=== PATIENT | male | born 1960 | race Asian ===

== ENCOUNTER 2022-04-12 18:35 | Inpatient (IN) | payer MEDICAID ==
[~2022-04-12] VITALS: Ht 188 cm; Wt 128.0 kg
[2022-04-12 20:48] LABS: Basophils # (auto) 0.1 10 ^3/uL (0-0.2); Basophils % (auto) 0.7 % (0.0-2.0); Eosinophils # (auto) 0.3 10 ^3/uL (0-0.8); Eosinophils % (auto) 3.4 % (0.0-7.0); Hematocrit 51.3 % (41.0-53.0); Hemoglobin 15.8 g/dL (13.5-17.5); Lymphocytes # (auto) 1.6 10 ^3/uL (0.4-5.4); Lymphocytes % (auto) 15.3 % (10.0-50.0); Mean Corpuscular Hemoglobin 18.8 pg (28.0-32.0); Mean Corpuscular Hgb Conc. 30.7 g/dL (32.0-36.0); Mean Corpuscular Volume 61.2 fL (80.0-100.0); Monocytes # (auto) 0.9 10 ^3/uL (0-1.3); Monocytes % (auto) 9.1 % (0.0-12.0); Neutrophils # (auto) 7.4 10 ^3/uL (1.6-8.6); Neutrophils % (auto) 71.5 % (37.0-80.0); Nucleated Red Blood Cells % 0.3 %; Red Blood Cells 8.38 10^6/uL (4.5-5.90); Red Cell Distribution Width 16.9 % (11.8-14.3); White Blood Cell 10.3 10^3/uL (4.4-10.8)
[2022-04-12] MEDS ORDERED: LABETALOL HCL 5 MG/ML 4ML SYRINGE IV ONE (21:00)
[2022-04-12] MEDS ORDERED: FUROSEMIDE 100 MG/10ML VIAL IV ONE (21:00)
[2022-04-12 21:07] LABS: Albumin 3.4 g/dL (3.4-5.0); BUN/Creatinine Ratio 17.6; Calcium 9.2 mg/dL (8.5-10.1); Magnesium 2.3 mg/dL (1.6-2.6); Potassium 4.1 mmol/L (3.5-5.1)
[2022-04-12 21:10] LABS: Bilirubin, Total 1.1 mg/dL (0.2-1.0); Total Protein 7.4 g/dL (6.4-8.2)
[2022-04-12] MEDS ORDERED: hydrALAZINE HCL 20 MG/ML VL IV ONE (21:15)
[2022-04-12 21:54] LABS: Urine Bacteria NONE SEEN /hpf (None Seen); Urine Blood TRACE /uL (Negative); Urine Specific Gravity 1.011 (1.001-1.035); Urine WBC <1 /hpf (0 - 3)
[2022-04-12] MEDS ORDERED: DOCUSATE SOD 100 MG CAP PO PRN (22:30)
[2022-04-12] MEDS ORDERED: ACETAMINOPHEN 325 MG TAB PO PRN (22:30)
[2022-04-12] MEDS ORDERED: hydrALAZINE HCL 20 MG/ML VL IV PRN (22:30)
[2022-04-12] MEDS ORDERED: ONDANSETRON HCL 4 MG/2 ML VIAL IV PRN (22:30)
[2022-04-12] MEDS ORDERED: HEPARIN SODIUM (PORCINE) 5000 UNITS/ML 1ML VIAL IV ONE (22:30)
[2022-04-12] MEDS ORDERED: amLODIPine BESYLATE 5 MG TAB PO ONE (22:30)
[2022-04-12] MEDS ORDERED: HYDROcodone-ACET 5/325MG TAB PO PRN (22:30)
[2022-04-12] MEDS ORDERED: MORPHINE SULFATE INJ 2 MG/ml SYRG IV PRN (23:45)
[2022-04-12] MEDS ORDERED: NITROGLYCERIN 0.4 MG SL TAB SL PRN (23:45)
[2022-04-13] MEDS ORDERED: HEPARIN SODIUM (PORCINE) 5000 UNITS/ML 1ML VIAL SC ONE (01:00)
[2022-04-13 05:10] LABS: Albumin 3.5 g/dL (3.4-5.0); BUN/Creatinine Ratio 17.3; Calcium 9.3 mg/dL (8.5-10.1); Potassium 4.2 mmol/L (3.5-5.1)
[2022-04-13 05:13] LABS: Bilirubin, Total 1.2 mg/dL (0.2-1.0); Total Protein 7.7 g/dL (6.4-8.2)
[2022-04-13] MEDS: SODIUM CHLOR 0.9% PF (SALINE LOCK) 10ML VIAL/SYR IV SCH ×3 (06:02→22:53)
[2022-04-13 08:38] LABS: Basophils # (auto) 0.1 10 ^3/uL (0-0.2); Basophils % (auto) 0.9 % (0.0-2.0); Eosinophils # (auto) 0.3 10 ^3/uL (0-0.8); Hematocrit 53.4 % (41.0-53.0); Hemoglobin 16.3 g/dL (13.5-17.5); Lymphocytes # (auto) 1.5 10 ^3/uL (0.4-5.4); Lymphocytes % (auto) 13.2 % (10.0-50.0); Mean Corpuscular Hemoglobin 18.7 pg (28.0-32.0); Mean Corpuscular Hgb Conc. 30.6 g/dL (32.0-36.0); Mean Corpuscular Volume 61.1 fL (80.0-100.0); Monocytes # (auto) 1.1 10 ^3/uL (0-1.3); Monocytes % (auto) 9.6 % (0.0-12.0); Neutrophils # (auto) 8.5 10 ^3/uL (1.6-8.6); Neutrophils % (auto) 73.3 % (37.0-80.0); Nucleated Red Blood Cells % 0.5 %; Red Blood Cells 8.73 10^6/uL (4.5-5.90); Red Cell Distribution Width 16.6 % (11.8-14.3); White Blood Cell 11.6 10^3/uL (4.4-10.8)
[2022-04-13] MEDS: ASPirin 81 mg TAB PO SCH (10:00)
[2022-04-13] MEDS ORDERED: HEPARIN SODIUM (PORCINE) 5000 UNITS/ML 1ML VIAL SC SCH (10:00)
[2022-04-13] MEDS: FAMOTIDINE (10MG/ML) 2ML VL IV SCH ×2 (10:00→22:53)
[2022-04-13] MEDS: CARVEDILOL 12.5 MG TAB PO SCH ×2 (10:01→22:54)
[2022-04-13] MEDS: AZITHROMYCIN 500MG/ 250ML 250 ML IV SCH (10:01)
[2022-04-13] MEDS: amLODIPine BESYLATE 5 MG TAB PO SCH (10:02)
[2022-04-13] MEDS ORDERED: AMLO-489 PO (12:29)
[2022-04-13] MEDS ORDERED: CARV3.1240 PO (12:29)
[2022-04-13] MEDS ORDERED: ASPI81CH49 PO (12:29)
[2022-04-13] MEDS ORDERED: SIMV-13 PO (12:29)
[2022-04-13] MEDS ORDERED: hydrALAZINE HCL 20 MG/ML VL IV PRN (12:45)
[2022-04-13 12:47] LABS: Cholesterol 166 mg/dL (< 200)
[2022-04-13 12:50] LABS: HDL Cholesterol 63 mg/dL (40-59); LDL Cholesterol 94 mg/dL (< 100); Triglycerides 112 mg/dL (< 150)
[2022-04-13] MEDS ORDERED: cefTRIAXone 1GM/50ML D5W 50 ML IV ONE (14:30)
[2022-04-13 15:02] VITALS: BP 143/99
[2022-04-13 15:36] LABS: INR 1.08 (0.9-1.15); Partial Thromboplastin Time 29.6 sec (24.6-33.4)
[2022-04-13] MEDS ORDERED: LISI2.5T47 PO (16:22)
[2022-04-13] MEDS ORDERED: ALLO100T PO (16:22)
[2022-04-13 17:00] VITALS: BP 143/106
[2022-04-13] MEDS ORDERED: ALBUTEROL MEDNEB 2.5 mg/3ml NEB ONE ×2 (17:59→21:35)
[2022-04-13] MEDS: IPRATROPIUM BROM 0.5 MG/2.5ML INH SOL NEB SCH ×2 (18:46→22:20)
[2022-04-13] MEDS: ALBUTEROL SULF 2.5 MG/0.5ML(0.5%) NEB SOLN NEB SCH ×2 (18:46→22:20)
[2022-04-13 22:00] VITALS: BP 118/77
[2022-04-13 22:44] VITALS: BP 143/106
[2022-04-13] MEDS: ENOXAPARIN SOD 150 MG/1 ML SYRINGE SC SCH (22:54)
[2022-04-13] MEDS: methylPREDNISolone SOD SUCC 40 MG/ML VL IV SCH (22:56)
[2022-04-14] MEDS ORDERED: ALBUTEROL MEDNEB 2.5 mg/3ml NEB ONE ×6 (01:56→21:21)
[2022-04-14] MEDS: IPRATROPIUM BROM 0.5 MG/2.5ML INH SOL NEB SCH ×6 (02:38→22:01)
[2022-04-14] MEDS: ALBUTEROL SULF 2.5 MG/0.5ML(0.5%) NEB SOLN NEB SCH ×6 (02:38→22:00)
[2022-04-14 05:00] VITALS: BP 142/100
[2022-04-14] MEDS: SODIUM CHLOR 0.9% PF (SALINE LOCK) 10ML VIAL/SYR IV SCH ×3 (05:11→22:31)
[2022-04-14] MEDS: methylPREDNISolone SOD SUCC 40 MG/ML VL IV SCH ×3 (05:11→22:32)
[2022-04-14 09:00] VITALS: BP 157/110
[2022-04-14 09:01] VITALS: BP 165/123
[2022-04-14] MEDS: cefTRIAXone 1GM/50ML D5W 50 ML IV SCH (09:42)
[2022-04-14] MEDS: FAMOTIDINE (10MG/ML) 2ML VL IV SCH ×2 (09:42→22:31)
[2022-04-14] MEDS: amLODIPine BESYLATE 5 MG TAB PO SCH (09:46)
[2022-04-14] MEDS: ASPirin 81 mg TAB PO SCH (09:47)
[2022-04-14] MEDS: ENOXAPARIN SOD 150 MG/1 ML SYRINGE SC SCH (09:47)
[2022-04-14] MEDS: AZITHROMYCIN 500MG/ 250ML 250 ML IV SCH (10:26)
[2022-04-14] MEDS: CARVEDILOL 12.5 MG TAB PO SCH ×2 (12:34→22:32)
[2022-04-14 13:00] VITALS: BP 143/99
[2022-04-14] MEDS ORDERED: BUMETANIDE 2.5mg/10ml (0.25 mg/ml) INJ IV ONE (13:15)
[2022-04-14 17:00] VITALS: BP 133/88
[2022-04-14 17:31] LABS: Alcohol, Urine < 3.0 mg/dL (0-10); Amphetamine Screen, Urine POSITIVE (NEGATIVE); Barbiturate Scree,Urine NEGATIVE (NEGATIVE); Benzodiazephine Screen, Urine NEGATIVE (NEGATIVE); Cannabinoid Screen, Urine NEGATIVE (NEGATIVE); Cocaine Screen, Urine NEGATIVE (NEGATIVE); Phencyclidine Screen, Urine NEGATIVE (NEGATIVE)
[2022-04-14 17:39] LABS: Opiate Scree,Urine NEGATIVE (NEGATIVE)
[2022-04-14 22:00] VITALS: BP 124/89
[2022-04-15] VITALS (10 sets, daily range): BP systolic 109–152; BP diastolic 69–101
[2022-04-15] MEDS ORDERED: ALBUTEROL MEDNEB 2.5 mg/3ml NEB ONE ×5 (01:49→21:58)
[2022-04-15] MEDS: IPRATROPIUM BROM 0.5 MG/2.5ML INH SOL NEB SCH ×7 (01:52→22:25)
[2022-04-15] MEDS: ALBUTEROL SULF 2.5 MG/0.5ML(0.5%) NEB SOLN NEB SCH ×7 (01:52→22:25)
[2022-04-15] MEDS: methylPREDNISolone SOD SUCC 40 MG/ML VL IV SCH ×3 (05:43→22:12)
[2022-04-15] MEDS: SODIUM CHLOR 0.9% PF (SALINE LOCK) 10ML VIAL/SYR IV SCH ×3 (05:43→22:12)
[2022-04-15] MEDS ORDERED: fentaNYL CITRATE 100 MCG/2 ML VL ONE (08:20)
[2022-04-15] MEDS ORDERED: HEPARIN SODIUM (PORCINE) 5000 UNITS/ML 1ML VIAL ONE (08:20)
[2022-04-15] MEDS ORDERED: ANGIOMAX 250 MG VIAL IV ONE (08:20)
[2022-04-15] MEDS ORDERED: VERAPAMIL 2.5MG/ML INJ 2ML VIAL IV ONE (08:20)
[2022-04-15] MEDS ORDERED: SODIUM CHL 0.9% 0 ML ONE (08:21)
[2022-04-15] MEDS ORDERED: MIDAZOLAM HCL 2MG/2ML 2ml VIAL (1mg/ml) ONE (08:21)
[2022-04-15] MEDS ORDERED: LIDOCAINE 2%HCL (LOCAL ANESTH.) INJ 10ml MDV ONE (08:21)
[2022-04-15] MEDS ORDERED: IODIXANOL 320MG/ML 100ML BTL IV ONE (08:44)
[2022-04-15] MEDS: ASPirin 81 mg TAB PO SCH (10:39)
[2022-04-15] MEDS: cefTRIAXone 1GM/50ML D5W 50 ML IV SCH (10:39)
[2022-04-15] MEDS: FAMOTIDINE (10MG/ML) 2ML VL IV SCH ×2 (10:39→22:12)
[2022-04-15] MEDS: CARVEDILOL 12.5 MG TAB PO SCH ×2 (10:40→22:13)
[2022-04-15] MEDS: amLODIPine BESYLATE 5 MG TAB PO SCH (10:40)
[2022-04-15] MEDS: AZITHROMYCIN 500MG/ 250ML 250 ML IV SCH (11:27)
[2022-04-15] MEDS: DOXYCYCLINE 100 MG TAB/CAP PO SCH (22:13)
[2022-04-16] MEDS: ALBUTEROL SULF 2.5 MG/0.5ML(0.5%) NEB SOLN NEB SCH ×4 (02:00→14:00)
[2022-04-16] MEDS: IPRATROPIUM BROM 0.5 MG/2.5ML INH SOL NEB SCH ×5 (02:00→14:00)
[2022-04-16] MEDS ORDERED: ALBUTEROL MEDNEB 2.5 mg/3ml NEB ONE ×4 (02:25→13:33)
[2022-04-16 05:13] VITALS: BP 125/96
[2022-04-16] MEDS: SODIUM CHLOR 0.9% PF (SALINE LOCK) 10ML VIAL/SYR IV SCH ×2 (05:35→13:41)
[2022-04-16] MEDS: methylPREDNISolone SOD SUCC 40 MG/ML VL IV SCH ×2 (05:36→13:41)
[2022-04-16 09:00] VITALS: BP 134/98
[2022-04-16] MEDS: cefTRIAXone 1GM/50ML D5W 50 ML IV SCH (10:01)
[2022-04-16] MEDS: CARVEDILOL 12.5 MG TAB PO SCH (10:01)
[2022-04-16] MEDS: ASPirin 81 mg TAB PO SCH (10:01)
[2022-04-16] MEDS: FAMOTIDINE (10MG/ML) 2ML VL IV SCH (10:01)
[2022-04-16] MEDS: DOXYCYCLINE 100 MG TAB/CAP PO SCH (10:01)
[2022-04-16] MEDS: amLODIPine BESYLATE 5 MG TAB PO SCH (10:02)
[2022-04-16] MEDS ORDERED: PRED20TA2 PO (12:33)
[2022-04-16] MEDS ORDERED: ATO40T PO (12:33)
[2022-04-16] MEDS ORDERED: AMLO-496 PO (12:33)
[2022-04-16] MEDS ORDERED: POTA10TA51 PO (12:33)
[2022-04-16] MEDS ORDERED: ALBUAER3 IN (12:33)
[2022-04-16] MEDS ORDERED: CAR125T PO (12:33)
[2022-04-16] MEDS ORDERED: ASPI-498 PO (12:33)
[2022-04-16] MEDS ORDERED: FURO1TAB31 PO (12:33)
[2022-04-16] MEDS ORDERED: DOXY-340 PO (12:33)
[2022-04-16 13:00] VITALS: BP 133/94
== END 2022-04-16 16:35 | disposition home or self-care (01) | DRG 190 ==
LOC: ER 18:35 → TELE 23:37 → TELE-E-ADS 04-13 15:13 → TELE-WESTW 04-13 16:28
PROVIDERS: ADMIT Nurse Practitioner Family; ATTEND Family Medicine
PROC: 4A023N7 Measurement of Cardiac Sampling and Pressure, Left Heart, Percutaneous Approach (ICD-10-PCS; principal; 2022-04-15)
PROC: B211YZZ Fluoroscopy of Multiple Coronary Arteries using Other Contrast (ICD-10-PCS; 2022-04-15)
PROC: B215YZZ Fluoroscopy of Left Heart using Other Contrast (ICD-10-PCS; 2022-04-15)
DX: I21.4 Non-ST elevation (NSTEMI) myocardial infarction (principal); J96.01 Acute respiratory failure with hypoxia; I50.43 Acute on chronic combined systolic (congestive) and diastolic (congestive) heart failure; N17.9 Acute kidney failure, unspecified; J18.9 Pneumonia, unspecified organism; I42.8 Other cardiomyopathies; I13.0 Hypertensive heart and chronic kidney disease with heart failure and stage 1 through stage 4 chronic kidney disease, or unspecified chronic kidney disease; E66.01 Morbid (severe) obesity due to excess calories; N18.32 Chronic kidney disease, stage 3b; E78.5 Hyperlipidemia, unspecified; M10.9 Gout, unspecified; F15.90 Other stimulant use, unspecified, uncomplicated; I25.10 Atherosclerotic heart disease of native coronary artery without angina pectoris; Z20.822 Contact with and (suspected) exposure to COVID-19; Z86.73 Personal history of transient ischemic attack (TIA), and cerebral infarction without residual deficits; Z91.199 Patient's noncompliance with other medical treatment and regimen due to unspecified reason; Z68.36 Body mass index [BMI] 36.0-36.9, adult
CPT/HCPCS: 36415; 71046; 80053; 80061; 80307; 81001; 83036; 83735; 83880; 84443; 84484; 85025; 85379; 85610; 85730; 86850; 86900; 86901; 87426; 87804; 93005; 93306; 93458; 93970; 94640; 96365; 96374; 99152; 99291; G0378; J0696; J2001; J2250; J3490; Q9967

== ENCOUNTER 2022-10-29 17:11 | Inpatient (IN) | payer MEDICAID ==
[~2022-10-29] VITALS: Ht 185.4 cm; Wt 128.8 kg
[~2022-10-29 17:11] MED LIST: ALBUAER3 IN; ALLO100T PO; AMLO1TAB22 PO; AMLO1TAB23 PO; ASPI-498 PO; ASPI81CH49 PO; ATO40T PO; CAR125T PO; CARV3.1240 PO; DOXY1CAP57 PO; FURO1TAB31 PO; LISI2.5T47 PO; POTA10TA51 PO; PRED20TA2 PO; SIMV40TA18 PO
[2022-10-29 19:19] LABS: Alanine Aminotransferase 63 U/L (7-40); Albumin 4.3 g/dL (3.2-4.8); Alkaline Phosphatase 126 U/L (46-116); Anion Gap 7.5 (5-15); Aspartate Aminotransferase 41 U/L (13-40); BUN/Creatinine Ratio 19.5 (10.0-20.0); Bilirubin, Total 0.9 mg/dL (0.2-1.0); Blood Urea Nitrogen 29 mg/dL (9-23); Calcium 9.6 mg/dL (8.5-10.1); Carbon Dioxide 25.5 mmol/L (20-30); Chloride 107 mmol/L (98-107); Glucose 162 mg/dL (74-106); Potassium 4.2 mmol/L (3.5-5.1); Sodium 140 mmol/L (136-145)
[2022-10-29 19:20] LABS: Total Protein 7.2 g/dL (5.7-8.2)
[2022-10-29 19:33] LABS: Basophils # (auto) 0.1 10 ^3/uL (0-0.2); Eosinophils # (auto) 0.7 10 ^3/uL (0-0.8); Mean Corpuscular Hemoglobin 18.9 pg (28.0-32.0)
[2022-10-29 19:36] LABS: Basophils % (auto) 0.6 % (0.0-2.0); Eosinophils % (auto) 8.6 % (0.0-7.0); Hematocrit 49.5 % (41.0-53.0); Hemoglobin 15.4 g/dL (13.5-17.5); Lymphocytes # (auto) 1.1 10 ^3/uL (0.4-5.4); Lymphocytes % (auto) 12.6 % (10.0-50.0); Mean Corpuscular Volume 60.9 fL (80.0-100.0); Monocytes # (auto) 0.6 10 ^3/uL (0-1.3); Monocytes % (auto) 7.3 % (0.0-12.0); Neutrophils % (auto) 70.9 % (37.0-80.0); Nucleated Red Blood Cells % 0.9 %; Red Blood Cells 8.12 10^6/uL (4.5-5.90); Red Cell Distribution Width 16.9 % (11.8-14.3); White Blood Cell 8.5 10^3/uL (4.4-10.8)
[2022-10-29 19:48] LABS: Urine Bacteria NONE SEEN /hpf (None Seen); Urine Blood TRACE /uL (Negative); Urine Clarity Clear (Clear); Urine Color Yellow (Yellow); Urine Hyaline Cast FEW /lpf (0 - 2); Urine Protein, UAD 2+ (Negative); Urine Specific Gravity 1.017 (1.001-1.035); Urine Urobilinogen Normal (Negative); Urine WBC 1 /hpf (0 - 3); Urine pH 5.5 (5.0-8.0)
[2022-10-29] MEDS ORDERED: LACTATED RINGER'S 1,000 ML IV ONE (21:00)
[2022-10-29] MEDS ORDERED: ASPirin 325 MG TAB PO ONE (21:00)
[2022-10-29] MEDS ORDERED: cloNIDine HCL 0.1 MG TAB PO ONE (22:30)
[2022-10-29 22:32] LABS: Lipase 84 U/L (12-53)
[2022-10-29 22:33] LABS: Blood Alcohol < 3.0 mg/dL (<10); Magnesium 2.2 mg/dL (1.6-2.6)
[2022-10-30] MEDS ORDERED: hydrALAZINE HCL 20 MG/ML VL IV ONE
[2022-10-30] MEDS ORDERED: ENOXAPARIN SOD 100 MG/1 ML SYRINGE SC ONE (00:30)
[2022-10-30] MEDS ORDERED: FUROSEMIDE 20 MG/2 ML VIAL IV ONE (00:30)
[2022-10-30] MEDS ORDERED: ONDANSETRON HCL 4 MG/2 ML VIAL IV PRN (00:45)
[2022-10-30] MEDS ORDERED: NITROGLYCERIN 0.4 MG SL TAB SL PRN (00:45)
[2022-10-30] MEDS ORDERED: ACETAMINOPHEN 325 MG TAB PO PRN (00:45)
[2022-10-30] MEDS ORDERED: MORPHINE SULFATE INJ 2 MG/ml SYRG IV PRN (00:45)
[2022-10-30] MEDS: hydrALAZINE HCL 20 MG/ML VL IV PRN ×2 (03:55→13:08)
[2022-10-30 07:30] VITALS: PULSE 98; RESP 28; O2SAT 96
[2022-10-30 09:04] LABS: COVID19 ANTIGEN SOFIA FIA NEGATIVE (NEGATIVE); Rapid Influenza A Negative (Negative); Rapid Influenza B Negative (Negative)
[2022-10-30] MEDS ORDERED: FUROSEMIDE 40 MG TAB PO SCH (10:00)
[2022-10-30] MEDS: ALLOPURINOL 100 MG TAB PO SCH (10:21)
[2022-10-30] MEDS: CARVEDILOL 3.125 MG TAB PO SCH ×2 (10:21→21:47)
[2022-10-30] MEDS: ASPirin 81 mg TAB PO SCH (10:23)
[2022-10-30] MEDS: PANTOPRAZOLE 40 MG TAB PO SCH (10:23)
[2022-10-30] MEDS: LISINOPRIL 5 MG TAB PO SCH (10:23)
[2022-10-30] MEDS: amLODIPine BESYLATE 5 MG TAB PO SCH (10:23)
[2022-10-30] MEDS: ENOXAPARIN SOD 30 MG/0.3 ML SYRINGE SC SCH (10:24)
[2022-10-30 18:00] VITALS: BP 134/89; PULSE 88; RESP 18; TEMP 97.9; O2SAT 97
[2022-10-30] MEDS: FUROSEMIDE 20 MG/2 ML VIAL IV SCH (18:16)
[2022-10-30 20:00] VITALS: PULSE 100; PULSE 88; RESP 20; O2SAT 97
[2022-10-30] MEDS: ATORVASTATIN 20 MG TAB PO SCH (21:47)
[2022-10-30 22:00] VITALS: BP 149/94; PULSE 94; RESP 20; TEMP 98.5; O2SAT 98
[2022-10-31 05:00] VITALS: BP 138/92; PULSE 86; RESP 22; TEMP 98.4; O2SAT 98
[2022-10-31 06:00] LABS: Alanine Aminotransferase 48 U/L (7-40); Albumin 3.8 g/dL (3.2-4.8); Alkaline Phosphatase 83 U/L (46-116); Anion Gap 5.8 (5-15); Aspartate Aminotransferase 34 U/L (13-40); BUN/Creatinine Ratio 12.8 (10.0-20.0); Blood Urea Nitrogen 23 mg/dL (9-23); Calcium 9.1 mg/dL (8.7-10.4); Carbon Dioxide 28.2 mmol/L (20-30); Chloride 103 mmol/L (98-107); Eosinophils # (auto) 0.7 10 ^3/uL (0-0.8); Glucose 117 mg/dL (74-106); Lymphocytes # (auto) 1.1 10 ^3/uL (0.4-5.4); Mean Corpuscular Volume 61.7 fL (80.0-100.0); Potassium 4.4 mmol/L (3.5-5.1); Sodium 137 mmol/L (136-145); White Blood Cell 10.3 10^3/uL (4.4-10.8)
[2022-10-31 06:01] LABS: Bilirubin, Total 1.3 mg/dL (0.2-1.0); Total Protein 6.7 g/dL (5.7-8.2)
[2022-10-31 06:03] LABS: Basophils # (auto) 0.1 10 ^3/uL (0-0.2); Basophils % (auto) 0.7 % (0.0-2.0); Eosinophils % (auto) 6.7 % (0.0-7.0); Mean Corpuscular Hemoglobin 19.3 pg (28.0-32.0); Mean Corpuscular Hgb Conc. 31.2 g/dL (32.0-36.0); Monocytes # (auto) 1.1 10 ^3/uL (0-1.3); Monocytes % (auto) 10.5 % (0.0-12.0); Neutrophils # (auto) 7.3 10 ^3/uL (1.6-8.6); Neutrophils % (auto) 71.1 % (37.0-80.0); Nucleated Red Blood Cells % 0.2 %; Red Blood Cells 7.78 10^6/uL (4.5-5.90); Red Cell Distribution Width 16.2 % (11.8-14.3)
[2022-10-31] MEDS: FUROSEMIDE 20 MG/2 ML VIAL IV SCH ×2 (06:10→17:35)
[2022-10-31 08:00] VITALS: BP 141/92; PULSE 85; PULSE 91; RESP 20; TEMP 98.1; O2SAT 95
[2022-10-31 09:24] LABS: Anisocytosis Slight; Hypochromia Slight; Platelet Estimate Adequate; Tear Drop Cells FEW
[2022-10-31] MEDS: ALLOPURINOL 100 MG TAB PO SCH (09:55)
[2022-10-31] MEDS: ASPirin 81 mg TAB PO SCH (09:55)
[2022-10-31] MEDS: PANTOPRAZOLE 40 MG TAB PO SCH (09:55)
[2022-10-31] MEDS: amLODIPine BESYLATE 5 MG TAB PO SCH (09:57)
[2022-10-31] MEDS: LISINOPRIL 5 MG TAB PO SCH (09:57)
[2022-10-31] MEDS: CARVEDILOL 3.125 MG TAB PO SCH ×2 (09:58→21:54)
[2022-10-31] MEDS: ENOXAPARIN SOD 30 MG/0.3 ML SYRINGE SC SCH (09:58)
[2022-10-31 10:36] LABS: Hepatitis B Surface Antigen Negative (Negative)
[2022-10-31 10:57] LABS: Hepatitis C Antibody Negative (Negative)
[2022-10-31 12:00] VITALS: BP 149/101; PULSE 89; RESP 21; TEMP 98.2; O2SAT 97
[2022-10-31 16:00] VITALS: BP 158/109; PULSE 81; RESP 18; TEMP 98; O2SAT 96
[2022-10-31] MEDS: hydrALAZINE HCL 20 MG/ML VL IV PRN (17:36)
[2022-10-31 20:00] VITALS: PULSE 90
[2022-10-31] MEDS: ATORVASTATIN 20 MG TAB PO SCH (21:53)
[2022-10-31 22:00] VITALS: BP 154/99; PULSE 90; RESP 20; TEMP 98.6; O2SAT 94
[2022-11-01] VITALS (7 sets, daily range): BP systolic 101–156; BP diastolic 65–117; PULSE 84–93; RESP 19–22; TEMP 97.5–98.4; O2SAT 93–97
[2022-11-01] MEDS: hydrALAZINE HCL 20 MG/ML VL IV PRN (05:28)
[2022-11-01] MEDS: FUROSEMIDE 20 MG/2 ML VIAL IV SCH ×2 (06:09→18:15)
[2022-11-01 07:04] LABS: Anion Gap 6.7 (5-15); Carbon Dioxide 27.3 mmol/L (20-30); Chloride 102 mmol/L (98-107); Potassium 4.5 mmol/L (3.5-5.1); Sodium 136 mmol/L (136-145)
[2022-11-01 07:06] LABS: Calcium 9.4 mg/dL (8.7-10.4)
[2022-11-01 07:10] LABS: BUN/Creatinine Ratio 10.9 (10.0-20.0); Blood Urea Nitrogen 19 mg/dL (9-23); Glucose 108 mg/dL (74-106)
[2022-11-01 07:15] LABS: Basophils # (auto) 0.1 10 ^3/uL (0-0.2); Eosinophils # (auto) 0.7 10 ^3/uL (0-0.8); Hematocrit 51.2 % (41.0-53.0); Mean Corpuscular Hemoglobin 19.1 pg (28.0-32.0); Monocytes # (auto) 1.2 10 ^3/uL (0-1.3); Red Cell Distribution Width 16.4 % (11.8-14.3)
[2022-11-01 07:16] LABS: Basophils % (auto) 0.6 % (0.0-2.0); Eosinophils % (auto) 6.8 % (0.0-7.0); Hemoglobin 15.9 g/dL (13.5-17.5); Lymphocytes # (auto) 1.1 10 ^3/uL (0.4-5.4); Lymphocytes % (auto) 10.3 % (10.0-50.0); Mean Corpuscular Volume 61.7 fL (80.0-100.0); Monocytes % (auto) 11.9 % (0.0-12.0); Neutrophils # (auto) 7.3 10 ^3/uL (1.6-8.6); Neutrophils % (auto) 70.4 % (37.0-80.0); Nucleated Red Blood Cells % 0.5 %; Red Blood Cells 8.29 10^6/uL (4.5-5.90); White Blood Cell 10.4 10^3/uL (4.4-10.8)
[2022-11-01 08:07] LABS: Hepatitis B Surface Antibody Negative (Negative)
[2022-11-01 08:47] LABS: Hepatitis A Total Antibody Negative (Negative)
[2022-11-01] MEDS: ASPirin 81 mg TAB PO SCH ×2 (09:02→10:00)
[2022-11-01] MEDS: ALLOPURINOL 100 MG TAB PO SCH (09:02)
[2022-11-01] MEDS: PANTOPRAZOLE 40 MG TAB PO SCH (09:02)
[2022-11-01] MEDS: LISINOPRIL 5 MG TAB PO SCH (09:03)
[2022-11-01] MEDS: amLODIPine BESYLATE 5 MG TAB PO SCH ×2 (09:03→10:00)
[2022-11-01] MEDS: CARVEDILOL 3.125 MG TAB PO SCH (09:03)
[2022-11-01] MEDS: ENOXAPARIN SOD 30 MG/0.3 ML SYRINGE SC SCH (09:04)
[2022-11-01] MEDS: DOBUTamine 1000MCG/ML 250 ML IV SCH ×2 (11:17→22:30)
[2022-11-01 18:49] LABS: Amphetamine Screen, Urine Pos (NEGATIVE); Barbiturate Scree,Urine Neg (NEGATIVE); Benzodiazephine Screen, Urine Neg (NEGATIVE); Cannabinoid Screen, Urine Neg (NEGATIVE); Cocaine Screen, Urine Neg (NEGATIVE); Opiate Scree,Urine Neg (NEGATIVE); Phencyclidine Screen, Urine Neg (NEGATIVE)
[2022-11-01 22:13] LABS: Hepatitis B Core Total AB Negative (Negative)
[2022-11-01] MEDS: CARVEDILOL 12.5 MG TAB PO SCH (22:27)
[2022-11-01] MEDS: ATORVASTATIN 20 MG TAB PO SCH (22:30)
[2022-11-02] VITALS (9 sets, daily range): BP systolic 110–135; BP diastolic 73–91; PULSE 65–85; RESP 18–20; TEMP 98–98.1; O2SAT 93–99
[2022-11-02] MEDS: FUROSEMIDE 20 MG/2 ML VIAL IV SCH (06:12)
[2022-11-02 06:52] LABS: Basophils # (auto) 0.1 10 ^3/uL (0-0.2); Chloride 101 mmol/L (98-107); Eosinophils # (auto) 0.5 10 ^3/uL (0-0.8); Hemoglobin 14.8 g/dL (13.5-17.5); Mean Corpuscular Volume 61.3 fL (80.0-100.0); Neutrophils # (auto) 7.7 10 ^3/uL (1.6-8.6); Neutrophils % (auto) 74.5 % (37.0-80.0); Potassium 4.4 mmol/L (3.5-5.1); Sodium 136 mmol/L (136-145)
[2022-11-02 06:53] LABS: Calcium 9.1 mg/dL (8.7-10.4)
[2022-11-02 06:54] LABS: Basophils % (auto) 0.5 % (0.0-2.0); Eosinophils % (auto) 4.4 % (0.0-7.0); Hematocrit 47.5 % (41.0-53.0); Lymphocytes # (auto) 1.1 10 ^3/uL (0.4-5.4); Lymphocytes % (auto) 10.2 % (10.0-50.0); Mean Corpuscular Hemoglobin 19.1 pg (28.0-32.0); Mean Corpuscular Hgb Conc. 31.2 g/dL (32.0-36.0); Monocytes # (auto) 1.1 10 ^3/uL (0-1.3); Monocytes % (auto) 10.4 % (0.0-12.0); Nucleated Red Blood Cells % 0.3 %; Red Blood Cells 7.75 10^6/uL (4.5-5.90); Red Cell Distribution Width 16.6 % (11.8-14.3); White Blood Cell 10.4 10^3/uL (4.4-10.8)
[2022-11-02 06:58] LABS: BUN/Creatinine Ratio 16.1 (10.0-20.0); Glucose 124 mg/dL (74-106)
[2022-11-02 08:00] LABS: Blood Urea Nitrogen 29 mg/dL (9-23)
[2022-11-02] MEDS: PANTOPRAZOLE 40 MG TAB PO SCH (09:56)
[2022-11-02] MEDS: ALLOPURINOL 100 MG TAB PO SCH (09:56)
[2022-11-02] MEDS: ASPirin 81 mg TAB PO SCH (09:56)
[2022-11-02] MEDS: amLODIPine BESYLATE 5 MG TAB PO SCH (09:57)
[2022-11-02] MEDS: CARVEDILOL 12.5 MG TAB PO SCH ×3 (09:57→21:50)
[2022-11-02] MEDS: ENOXAPARIN SOD 30 MG/0.3 ML SYRINGE SC SCH (09:58)
[2022-11-02 11:11] LABS: Platelet Estimate Adequate
[2022-11-02 11:12] LABS: Hypochromia Moderate
[2022-11-02] MEDS: DOBUTamine 1000MCG/ML 250 ML IV SCH (12:06)
[2022-11-02 16:44] LABS: Base Excess 3.2 mmol/L (-2.0-2.0)
[2022-11-02] MEDS: ATORVASTATIN 20 MG TAB PO SCH (21:35)
[2022-11-02] MEDS: BUDESONIDE (INHALATION) 0.5 MG/2 ML NEB NEB SCH (22:26)
[2022-11-02] MEDS: IPRATROPIUM BROM 0.5 MG/2.5ML INH SOL NEB SCH (22:26)
[2022-11-03] VITALS (9 sets, daily range): BP systolic 121–140; BP diastolic 78–103; PULSE 66–76; RESP 18–22; TEMP 36.5; O2SAT 93–100
[2022-11-03 06:46] LABS: Hemoglobin 15.2 g/dL (13.5-17.5); Mean Corpuscular Volume 61.4 fL (80.0-100.0); Monocytes # (auto) 1.2 10 ^3/uL (0-1.3); Nucleated Red Blood Cells % 0.4 %
[2022-11-03 06:48] LABS: Basophils # (auto) 0.1 10 ^3/uL (0-0.2); Basophils % (auto) 0.7 % (0.0-2.0); Eosinophils # (auto) 0.5 10 ^3/uL (0-0.8); Eosinophils % (auto) 4.9 % (0.0-7.0); Hematocrit 48.6 % (41.0-53.0); Lymphocytes # (auto) 1.2 10 ^3/uL (0.4-5.4); Lymphocytes % (auto) 12.1 % (10.0-50.0); Mean Corpuscular Hemoglobin 19.2 pg (28.0-32.0); Mean Corpuscular Hgb Conc. 31.4 g/dL (32.0-36.0); Monocytes % (auto) 11.7 % (0.0-12.0); Neutrophils # (auto) 6.9 10 ^3/uL (1.6-8.6); Neutrophils % (auto) 70.6 % (37.0-80.0); Red Blood Cells 7.92 10^6/uL (4.5-5.90); Red Cell Distribution Width 16.2 % (11.8-14.3); White Blood Cell 9.9 10^3/uL (4.4-10.8)
[2022-11-03] MEDS ORDERED: EMPAGLIFLOZIN 10 MG TAB PO SCH (07:00)
[2022-11-03 07:03] LABS: Alanine Aminotransferase 32 U/L (7-40); Alkaline Phosphatase 82 U/L (46-116); Anion Gap 5.5 (5-15); Aspartate Aminotransferase 23 U/L (13-40); BUN/Creatinine Ratio 16.2 (10.0-20.0); Blood Urea Nitrogen 28 mg/dL (9-23); Calcium 9.3 mg/dL (8.7-10.4); Carbon Dioxide 29.5 mmol/L (20-30); Chloride 101 mmol/L (98-107); Glucose 111 mg/dL (74-106); Potassium 4.7 mmol/L (3.5-5.1); Sodium 136 mmol/L (136-145)
[2022-11-03 07:04] LABS: Bilirubin, Total 1.2 mg/dL (0.2-1.0)
[2022-11-03] MEDS: IPRATROPIUM BROM 0.5 MG/2.5ML INH SOL NEB SCH ×2 (07:20→14:58)
[2022-11-03] MEDS: BUDESONIDE (INHALATION) 0.5 MG/2 ML NEB NEB SCH (07:21)
[2022-11-03] MEDS: ENOXAPARIN SOD 30 MG/0.3 ML SYRINGE SC SCH (09:23)
[2022-11-03] MEDS: ALLOPURINOL 100 MG TAB PO SCH (09:24)
[2022-11-03] MEDS: CARVEDILOL 12.5 MG TAB PO SCH (09:24)
[2022-11-03] MEDS: amLODIPine BESYLATE 5 MG TAB PO SCH (09:24)
[2022-11-03] MEDS: ASPirin 81 mg TAB PO SCH (09:24)
[2022-11-03] MEDS: PANTOPRAZOLE 40 MG TAB PO SCH (09:24)
[2022-11-03] MEDS ORDERED: FUROSEMIDE 40 MG TAB PO SCH (10:00)
[2022-11-03] MEDS ORDERED: EMPA1TAB PO (11:07)
== END 2022-11-03 18:30 | disposition home or self-care (01) | DRG 199 ==
LOC: ER 17:11 → TELE 10-30 00:44 → TELE-EAST 10-30 17:27
PROVIDERS: ADMIT Internal Medicine Pulmonary Disease; ATTEND Internal Medicine
DX: I16.0 Hypertensive urgency (principal); J81.0 Acute pulmonary edema; I50.23 Acute on chronic systolic (congestive) heart failure; I21.A1 Myocardial infarction type 2; I13.0 Hypertensive heart and chronic kidney disease with heart failure and stage 1 through stage 4 chronic kidney disease, or unspecified chronic kidney disease; I42.7 Cardiomyopathy due to drug and external agent; E11.22 Type 2 diabetes mellitus with diabetic chronic kidney disease; R31.9 Hematuria, unspecified; E78.5 Hyperlipidemia, unspecified; F15.19 Other stimulant abuse with unspecified stimulant-induced disorder; R77.8 Other specified abnormalities of plasma proteins; N18.9 Chronic kidney disease, unspecified; M10.9 Gout, unspecified; Z20.822 Contact with and (suspected) exposure to COVID-19; E66.9 Obesity, unspecified; F15.10 Other stimulant abuse, uncomplicated; F17.200 Nicotine dependence, unspecified, uncomplicated; Z82.49 Family history of ischemic heart disease and other diseases of the circulatory system; Z86.73 Personal history of transient ischemic attack (TIA), and cerebral infarction without residual deficits; Z68.37 Body mass index [BMI] 37.0-37.9, adult
CPT/HCPCS: 36415; 36600; 71046; 71250; 80048; 80053; 80307; 80320; 81001; 82805; 83690; 83735; 83880; 84484; 85025; 86704; 86706; 86708; 86803; 87340; 87426; 87804; 93005; 93306; 94640; 97110; 97116; 97163; 97530; G0378

== ENCOUNTER 2022-11-08 10:22 | Emergency (ER) | payer MEDICAID ==
[~2022-11-08] VITALS: Ht 185.4 cm; Wt 133.0 kg
[~2022-11-08 10:22] MED LIST changes: +EMPA1TAB PO; -PRED20TA2 PO
[2022-11-08 11:04] VITALS: BP 141/96; PULSE 93; RESP 18; TEMP 98.4; O2SAT 95
== END 2022-11-08 11:07 | disposition home or self-care (01) ==
LOC: ER 10:22
DX: I16.0 Hypertensive urgency (principal); I11.0 Hypertensive heart disease with heart failure; I50.89 Other heart failure; F17.210 Nicotine dependence, cigarettes, uncomplicated; F15.90 Other stimulant use, unspecified, uncomplicated; Z79.899 Other long term (current) drug therapy; Z79.82 Long term (current) use of aspirin; E78.5 Hyperlipidemia, unspecified; Z86.73 Personal history of transient ischemic attack (TIA), and cerebral infarction without residual deficits

== ENCOUNTER 2023-04-30 03:48 | Inpatient (IN) | payer MEDICAID ==
[~2023-04-30] VITALS: Ht 185.4 cm; Wt 128.1 kg
[2023-04-30] MEDS: NITROGLYCERIN 0.4MG/HR TOPICAL PATCH TD ONE (04:30)
[2023-04-30] MEDS: FUROSEMIDE 100 MG/10ML VIAL IV ONE (04:30)
[2023-04-30 04:42] LABS: Basophils # (auto) 0.1 10 ^3/uL (0-0.2); Eosinophils # (auto) 0.5 10 ^3/uL (0-0.8); Hemoglobin 15.5 g/dL (13.5-17.5); Lymphocytes # (auto) 1.6 10 ^3/uL (0.4-5.4); Mean Corpuscular Hemoglobin 18.8 pg (28.0-32.0); Neutrophils # (auto) 5.7 10 ^3/uL (1.6-8.6); Red Cell Distribution Width 16.7 % (11.8-14.3); White Blood Cell 8.9 10^3/uL (4.4-10.8)
[2023-04-30 04:44] LABS: Basophils % (auto) 0.9 % (0.0-2.0); Eosinophils % (auto) 5.7 % (0.0-7.0); Hematocrit 50.5 % (41.0-53.0); Lymphocytes % (auto) 17.8 % (10.0-50.0); Mean Corpuscular Hgb Conc. 30.6 g/dL (32.0-36.0); Mean Corpuscular Volume 61.4 fL (80.0-100.0); Monocytes % (auto) 11.8 % (0.0-12.0); Neutrophils % (auto) 63.8 % (37.0-80.0); Nucleated Red Blood Cells % 0.8 %; Red Blood Cells 8.23 10^6/uL (4.5-5.90)
[2023-04-30 04:54] LABS: Chloride 109 mmol/L (98-107); Potassium 4.5 mmol/L (3.5-5.1); Sodium 141 mmol/L (136-145)
[2023-04-30 04:55] LABS: Anion Gap 6 (5-15); Calcium 9.1 mg/dL (8.7-10.4); Carbon Dioxide 26 mmol/L (20-30)
[2023-04-30 05:00] LABS: BUN/Creatinine Ratio 12.6 (10.0-20.0); Blood Urea Nitrogen 25 mg/dL (9-23); Glucose 126 mg/dL (74-106)
[2023-04-30 05:35] VITALS: PULSE 92; RESP 18; O2SAT 95
[2023-04-30] MEDS: ASPirin 325 MG TAB PO ONE (05:49)
[2023-04-30] MEDS: LABETALOL HCL 5 MG/ML 4ML SYRINGE IV ONE (06:14)
[2023-04-30 06:53] LABS: Anisocytosis Slight; Platelet Estimate Adequate
[2023-04-30 06:54] LABS: Hypochromia Marked
[2023-04-30] MEDS ORDERED: LABETALOL HCL 5 MG/ML 4ML SYRINGE IV PRN (07:00)
[2023-04-30] MEDS ORDERED: ONDANSETRON HCL 4 MG/2 ML VIAL IV PRN (07:00)
[2023-04-30] MEDS ORDERED: MORPHINE SULFATE INJ 2 MG/ml SYRG IV PRN (07:00)
[2023-04-30] MEDS ORDERED: NITROGLYCERIN 0.4 MG SL TAB SL PRN (07:00)
[2023-04-30] MEDS ORDERED: hydrALAZINE HCL 20 MG/ML VL IV PRN (09:30)
[2023-04-30] MEDS ORDERED: CARVEDILOL 3.125 MG TAB PO SCH (10:00)
[2023-04-30] MEDS ORDERED: amLODIPine BESYLATE 5 MG TAB PO SCH (10:00)
[2023-04-30] MEDS: ALLOPURINOL 100 MG TAB PO SCH (10:00)
[2023-04-30] MEDS ORDERED: FUROSEMIDE 40 MG TAB PO SCH (10:00)
[2023-04-30] MEDS ORDERED: ASPirin 81 mg TAB PO SCH (10:00)
[2023-04-30] MEDS ORDERED: LISINOPRIL 5 MG TAB PO SCH (10:00)
[2023-04-30 10:02] LABS: Amphetamine Screen, Urine Pos (NEGATIVE); Barbiturate Scree,Urine Neg (NEGATIVE); Benzodiazephine Screen, Urine Neg (NEGATIVE); Cannabinoid Screen, Urine Neg (NEGATIVE); Cocaine Screen, Urine Neg (NEGATIVE); Opiate Scree,Urine Neg (NEGATIVE); Phencyclidine Screen, Urine Neg (NEGATIVE)
[2023-04-30] MEDS: SODIUM CHLORIDE 0.9% 1,000 ML IV SCH (10:30)
[2023-04-30 10:47] LABS: Urine WBC None Seen /hpf (0 - 3)
[2023-04-30 11:10] LABS: Protein, Urine 31.2 mg/dL (0.0-11.9)
[2023-04-30 11:13] LABS: Creatinine, Urine 41.34 mg/dL (30.0-125.0); Urine Protein/Creatinine Ratio 0.75
[2023-04-30 11:17] LABS: Urine Bacteria NONE SEEN /hpf (None Seen); Urine Blood Negative /uL (Negative); Urine Clarity Clear (Clear); Urine Color Straw (Yellow); Urine Protein, UAD TRACE (Negative); Urine Specific Gravity 1.008 (1.001-1.035); Urine Urobilinogen Normal (Negative); Urine pH 5.5 (5.0-8.0)
[2023-04-30] MEDS: amLODIPine BESYLATE 5 MG TAB PO SCH (11:17)
[2023-04-30] MEDS: EMPAGLIFLOZIN 10 MG TAB PO SCH (11:20)
[2023-04-30] MEDS: LABETALOL HCL 200 MG TAB PO SCH (11:21)
[2023-04-30 13:05] LABS: Magnesium 2.1 mg/dL (1.6-2.6)
[2023-04-30 13:07] LABS: Phosphorus 3.2 mg/dL (2.4-5.1)
[2023-04-30] MEDS: CHOLECALCIFEROL (VITD3) 1,000UNIT=25mCg TAB PO ONE (14:30)
[2023-04-30 15:40] LABS: INR 1.08 (0.9-1.15); Partial Thromboplastin Time 29.3 SEC (24.5-34.5); Prothrombin Time 11.3 sec (9.3-11.8)
[2023-04-30 18:15] VITALS: RESP 18; O2SAT 95
[2023-04-30 20:00] VITALS: PULSE 70; RESP 24; O2SAT 96
[2023-04-30] MEDS: CARBAMIDE PEROXIDE 6.5% OTIC(EAR) SOLN 15ML EACH EAR SCH (22:14)
[2023-04-30] MEDS: ATORVASTATIN 20 MG TAB PO SCH (22:14)
[2023-04-30 22:41] VITALS: PULSE 77
[2023-05-01 05:00] VITALS: BP 116/96; PULSE 80; RESP 20; TEMP 98.1; O2SAT 97
[2023-05-01 06:54] LABS: Basophils # (auto) 0.1 10 ^3/uL (0-0.2); Basophils % (auto) 0.9 % (0.0-2.0); Eosinophils # (auto) 0.5 10 ^3/uL (0-0.8); Hemoglobin 14.7 g/dL (13.5-17.5); Lymphocytes # (auto) 1.6 10 ^3/uL (0.4-5.4); Neutrophils # (auto) 6.4 10 ^3/uL (1.6-8.6); White Blood Cell 9.6 10^3/uL (4.4-10.8)
[2023-05-01 06:56] LABS: Eosinophils % (auto) 5.1 % (0.0-7.0); Hematocrit 47.1 % (41.0-53.0); Lymphocytes % (auto) 17.1 % (10.0-50.0); Mean Corpuscular Hemoglobin 18.8 pg (28.0-32.0); Mean Corpuscular Hgb Conc. 31.1 g/dL (32.0-36.0); Mean Corpuscular Volume 60.5 fL (80.0-100.0); Monocytes # (auto) 0.9 10 ^3/uL (0-1.3); Monocytes % (auto) 9.7 % (0.0-12.0); Neutrophils % (auto) 67.2 % (37.0-80.0); Nucleated Red Blood Cells % 0.4 %; Red Cell Distribution Width 16.5 % (11.8-14.3)
[2023-05-01 08:00] VITALS: PULSE 79; PULSE 80; RESP 20
[2023-05-01 08:11] LABS: Alanine Aminotransferase 37 U/L (7-40); Albumin 3.9 g/dL (3.2-4.8); Alkaline Phosphatase 91 U/L (46-116); Anion Gap 8 (5-15); Aspartate Aminotransferase 25 U/L (13-40); BUN/Creatinine Ratio 8.6 (10.0-20.0); Bilirubin, Total 1.1 mg/dL (0.2-1.0); Blood Urea Nitrogen 17 mg/dL (9-23); Calcium 9.4 mg/dL (8.5-10.1); Carbon Dioxide 25 mmol/L (20-30); Chloride 105 mmol/L (98-107); Cholesterol 136 mg/dL (< 200); Glucose 122 mg/dL (74-106); HDL Cholesterol 41 mg/dL (40-59); LDL Cholesterol 77 mg/dL (< 100); Potassium 4.7 mmol/L (3.5-5.1); Sodium 138 mmol/L (136-145); Total Protein 6.5 g/dL (5.7-8.2); Triglycerides 126 mg/dL (< 150)
[2023-05-01] MEDS: ASPirin 81 mg TAB PO SCH (08:41)
[2023-05-01] MEDS: CHOLECALCIFEROL (VITD3) 1,000UNIT=25mCg TAB PO SCH (08:42)
[2023-05-01 08:51] LABS: Hepatitis B Surface Antigen Negative (Negative)
[2023-05-01 09:00] VITALS: BP 148/96; PULSE 80; RESP 22; TEMP 98.5; O2SAT 97
[2023-05-01 09:12] LABS: Hepatitis C Antibody Negative (Negative)
[2023-05-01 09:31] LABS: Magnesium 2.2 mg/dL (1.6-2.6)
[2023-05-01] MEDS ORDERED: ASPI1TAB20 PO (10:46)
[2023-05-01] MEDS ORDERED: EMPA1TAB PO (10:46)
[2023-05-01] MEDS ORDERED: ALL100T PO (10:46)
[2023-05-01] MEDS ORDERED: CARV3.1240 PO (10:46)
[2023-05-01] MEDS ORDERED: AML5T PO (10:46)
[2023-05-01] MEDS ORDERED: METF-489 PO (10:49)
[2023-05-01] MEDS ORDERED: ATOR40TA52 PO (10:49)
[2023-05-01] MEDS ORDERED: CHOL20007 PO (11:05)
[2023-05-01 12:51] VITALS: BP 171/94; PULSE 88; RESP 20; TEMP 98.4; O2SAT 100
[2023-05-01] MEDS: ERGOCALCIFEROL 50,000 UNIT(1.25MG) CAP PO SCH (14:30)
[2023-05-01 17:00] VITALS: BP 143/96; PULSE 86; RESP 22; TEMP 98.4; O2SAT 98
== END 2023-05-01 18:00 | disposition home or self-care (01) | DRG 199 ==
LOC: ER 03:48 → TELE 06:57 → TELE-WESTW 07:04
PROVIDERS: ADMIT Internal Medicine Geriatric Medicine; ATTEND Internal Medicine Geriatric Medicine
DX: I16.1 Hypertensive emergency (principal); J96.01 Acute respiratory failure with hypoxia; I21.A1 Myocardial infarction type 2; I50.23 Acute on chronic systolic (congestive) heart failure; I13.0 Hypertensive heart and chronic kidney disease with heart failure and stage 1 through stage 4 chronic kidney disease, or unspecified chronic kidney disease; I25.10 Atherosclerotic heart disease of native coronary artery without angina pectoris; N17.9 Acute kidney failure, unspecified; I42.7 Cardiomyopathy due to drug and external agent; E78.5 Hyperlipidemia, unspecified; F15.10 Other stimulant abuse, uncomplicated; M10.9 Gout, unspecified; F17.210 Nicotine dependence, cigarettes, uncomplicated; E55.9 Vitamin D deficiency, unspecified; H91.93 Unspecified hearing loss, bilateral; E11.22 Type 2 diabetes mellitus with diabetic chronic kidney disease; N18.9 Chronic kidney disease, unspecified; Z91.199 Patient's noncompliance with other medical treatment and regimen due to unspecified reason; Z82.49 Family history of ischemic heart disease and other diseases of the circulatory system; Z86.73 Personal history of transient ischemic attack (TIA), and cerebral infarction without residual deficits
CPT/HCPCS: 36415; 71045; 76775; 80048; 80053; 80061; 80307; 81001; 82306; 82570; 83735; 83880; 83970; 84100; 84156; 84300; 84484; 84550; 85025; 85610; 85730; 86803; 87340; 93005; 93306; 96374; 96375; 99291; G0378; J3490

== ENCOUNTER 2023-11-08 00:44 | Inpatient (IN) | payer MEDICAID ==
[~2023-11-08] VITALS: Ht 185.4 cm; Wt 131.3 kg
[2023-11-08] VITALS (11 sets, daily range): BP systolic 123–199; BP diastolic 78–136; PULSE 72–103; RESP 20–22; TEMP 97.5–98; O2SAT 93–99
[~2023-11-08 00:44] MED LIST changes: -ALBUAER3 IN; +ALL100T PO; -ALLO100T PO; +AML5T PO; -AMLO1TAB22 PO; -AMLO1TAB23 PO; -ASPI-498 PO; +ASPI1TAB20 PO; -ASPI81CH49 PO; -ATO40T PO; +ATOR40TA52 PO; -CAR125T PO; +CHOL20007 PO; -DOXY1CAP57 PO; -FURO1TAB31 PO; -LISI2.5T47 PO; +METF-489 PO; -POTA10TA51 PO; -SIMV40TA18 PO
[2023-11-08 01:42] LABS: Basophils # (auto) 0.1 10 ^3/uL (0-0.2)
[2023-11-08 01:46] LABS: Eosinophils # (auto) 0.5 10 ^3/uL (0-0.8); Lymphocytes # (auto) 1.3 10 ^3/uL (0.4-5.4); White Blood Cell 9.6 10^3/uL (4.4-10.8)
[2023-11-08 01:51] LABS: Hemoglobin 16.1 g/dL (13.5-17.5); Nucleated Red Blood Cells % 0.4 %
[2023-11-08 01:52] LABS: Basophils % (auto) 0.8 % (0.0-2.0); Eosinophils % (auto) 5.7 % (0.0-7.0); Hematocrit 50.1 % (41.0-53.0); Lymphocytes % (auto) 14.1 % (10.0-50.0); Mean Corpuscular Hemoglobin 19.8 pg (28.0-32.0); Mean Corpuscular Hgb Conc. 32.1 g/dL (32.0-36.0); Mean Corpuscular Volume 61.6 fL (80.0-100.0); Monocytes # (auto) 0.9 10 ^3/uL (0-1.3); Monocytes % (auto) 8.9 % (0.0-12.0); Neutrophils # (auto) 6.8 10 ^3/uL (1.6-8.6); Neutrophils % (auto) 70.5 % (37.0-80.0); Platelet Count (auto) 203 10^3/uL (140-450); Red Blood Cells 8.13 10^6/uL (4.5-5.90); Red Cell Distribution Width 16.8 % (11.8-14.3)
[2023-11-08 01:53] LABS: Alanine Aminotransferase 47 U/L (7-40); Albumin 4.2 g/dL (3.2-4.8); Alkaline Phosphatase 117 U/L (46-116); Anion Gap 7 (5-15); Aspartate Aminotransferase 40 U/L (13-40); Bilirubin, Total 1.2 mg/dL (0.2-1.0); Blood Urea Nitrogen 21 mg/dL (9-23); Calcium 9.7 mg/dL (8.7-10.4); Carbon Dioxide 27 mmol/L (20-30); Chloride 106 mmol/L (98-107); Glucose 140 mg/dL (74-106); Potassium 4.1 mmol/L (3.5-5.1); Sodium 140 mmol/L (136-145); Total Protein 7.5 g/dL (5.7-8.2)
[2023-11-08 02:02] LABS: BUN/Creatinine Ratio 10.2 (10.0-20.0)
[2023-11-08 02:23] LABS: Hypochromia Moderate
[2023-11-08 02:24] LABS: Stomatocytes Moderate
[2023-11-08 02:25] LABS: Large Platelets FEW; Platelet Estimate Adequa
[2023-11-08] MEDS: ALBUTEROL SULF 2.5 MG/0.5ML(0.5%) NEB SOLN NEB ONE (02:28)
[2023-11-08] MEDS: IPRATROPIUM BROM 0.5 MG/2.5ML INH SOL NEB ONE (02:29)
[2023-11-08] MEDS: cloNIDine HCL 0.1 MG TAB PO ONE (02:45)
[2023-11-08] MEDS ORDERED: DEXTROSE (50%) 50ML SYRG IV PRN (02:45)
[2023-11-08] MEDS ORDERED: ALBUTEROL SULF 2.5 MG/0.5ML(0.5%) NEB SOLN NEB PRN (02:45)
[2023-11-08] MEDS ORDERED: DOCUSATE SOD 100 MG CAP PO PRN (02:45)
[2023-11-08] MEDS: SODIUM CHLORIDE 0.9% 1,000 ML IV SCH (02:45)
[2023-11-08] MEDS ORDERED: IPRATROPIUM BROM 0.5 MG/2.5ML INH SOL NEB PRN (02:45)
[2023-11-08] MEDS ORDERED: ACETAMINOPHEN 325 MG TAB PO PRN (02:45)
[2023-11-08] MEDS: ASPirin-EC 325mg tab PO ONE (02:45)
[2023-11-08] MEDS ORDERED: HYDROcodone-ACET 5/325MG TAB PO PRN (02:45)
[2023-11-08] MEDS: METOPROLOL TARTRATE 25 MG TAB PO ONE (02:45)
[2023-11-08 03:30] LABS: INR 1.04 (0.9-1.15); Partial Thromboplastin Time 27.6 SEC (24.5-34.5)
[2023-11-08] MEDS: hydrALAZINE HCL 20 MG/ML VL IV PRN (03:46)
[2023-11-08] MEDS: ONDANSETRON HCL 4 MG/2 ML VIAL IV PRN (03:46)
[2023-11-08 04:28] LABS: Urine Bacteria None Seen /hpf (None Seen)
[2023-11-08 04:38] LABS: Urine Blood 1+ /uL (Negative); Urine Clarity Clear (Clear); Urine Color Yellow (Yellow); Urine Hyaline Cast MOD /lpf (0 - 2); Urine Protein, UAD 3+ (Negative); Urine Specific Gravity 1.024 (1.001-1.035); Urine Urobilinogen Normal (Negative); Urine WBC 4 /hpf (0 - 3)
[2023-11-08] MEDS: HEPARIN DRIP/D5W 100UNITS/ML 250 ML IV SCH (05:02)
[2023-11-08 05:07] LABS: Basophils # (auto) 0.1 10 ^3/uL (0-0.2); Basophils % (auto) 1.1 % (0.0-2.0); Eosinophils # (auto) 0.6 10 ^3/uL (0-0.8); Hematocrit 51.7 % (41.0-53.0); Hemoglobin 16.1 g/dL (13.5-17.5); Lymphocytes # (auto) 1.6 10 ^3/uL (0.4-5.4); Lymphocytes % (auto) 16.3 % (10.0-50.0); Mean Corpuscular Hemoglobin 19.3 pg (28.0-32.0); Mean Corpuscular Hgb Conc. 31.1 g/dL (32.0-36.0); Mean Corpuscular Volume 62.1 fL (80.0-100.0); Monocytes # (auto) 0.9 10 ^3/uL (0-1.3); Monocytes % (auto) 8.8 % (0.0-12.0); Neutrophils # (auto) 6.8 10 ^3/uL (1.6-8.6); Neutrophils % (auto) 67.8 % (37.0-80.0); Nucleated Red Blood Cells % 0.1 %; Platelet Count (auto) 179 10^3/uL (140-450); Red Blood Cells 8.33 10^6/uL (4.5-5.90); Red Cell Distribution Width 17.2 % (11.8-14.3)
[2023-11-08 05:23] LABS: Alanine Aminotransferase 45 U/L (7-40); Albumin 3.9 g/dL (3.2-4.8); Alkaline Phosphatase 112 U/L (46-116); Anion Gap 5 (5-15); Aspartate Aminotransferase 39 U/L (13-40); Blood Urea Nitrogen 18 mg/dL (9-23); Calcium 9.6 mg/dL (8.7-10.4); Carbon Dioxide 27 mmol/L (20-30); Chloride 107 mmol/L (98-107); Glucose 126 mg/dL (74-106); Potassium 3.9 mmol/L (3.5-5.1); Sodium 139 mmol/L (136-145); Total Protein 7.2 g/dL (5.7-8.2)
[2023-11-08] MEDS ORDERED: MORPHINE SULFATE INJ 2 MG/ml SYRG IV PRN (06:30)
[2023-11-08] MEDS ORDERED: NITROGLYCERIN 0.4 MG SL TAB SL PRN (06:30)
[2023-11-08] MEDS: InsuLIN REG 1unit/0.01ml Soln (100units/ml) SC SCH ×2 (06:45→22:27)
[2023-11-08] MEDS: ACCU-CHEK COMFORT CURVE STRIP VI SCH (06:45)
[2023-11-08] MEDS ORDERED: SIMV40TA18 PO (09:23)
[2023-11-08] MEDS ORDERED: LISI2.5T47 PO (09:23)
[2023-11-08] MEDS: ASPirin 81 mg TAB PO SCH (10:08)
[2023-11-08] MEDS: amLODIPine BESYLATE 5 MG TAB PO SCH (10:09)
[2023-11-08] MEDS: METOPROLOL TARTRATE 25 MG TAB PO SCH (10:14)
[2023-11-08 11:35] LABS: INR 1.03 (0.9-1.15); Partial Thromboplastin Time 30.3 SEC (24.5-34.5); Prothrombin Time 10.9 sec (9.3-11.8)
[2023-11-08 14:10] LABS: Amphetamine Screen, Urine Pos (NEGATIVE); Barbiturate Scree,Urine Neg (NEGATIVE); Benzodiazephine Screen, Urine Neg (NEGATIVE); Cannabinoid Screen, Urine Neg (NEGATIVE); Cocaine Screen, Urine Neg (NEGATIVE); Opiate Scree,Urine Neg (NEGATIVE); Phencyclidine Screen, Urine Neg (NEGATIVE)
[2023-11-08] MEDS: FUROSEMIDE 20 MG/2 ML VIAL IV SCH (18:36)
[2023-11-08] MEDS: CARVEDILOL 12.5 MG TAB PO SCH (22:24)
[2023-11-08] MEDS: ATORVASTATIN 20 MG TAB PO SCH (22:25)
[2023-11-09] VITALS (11 sets, daily range): BP systolic 116–138; BP diastolic 79–94; PULSE 60–81; RESP 12–20; TEMP 97.4–98.3; O2SAT 90–97
[2023-11-09 05:07] LABS: White Blood Cell 10.5 10^3/uL (4.4-10.8)
[2023-11-09 05:14] LABS: Basophils # (auto) 0.3 10 ^3/uL (0-0.2); Basophils % (auto) 3.3 % (0.0-2.0); Eosinophils # (auto) 0.4 10 ^3/uL (0-0.8); Eosinophils % (auto) 3.4 % (0.0-7.0); Hemoglobin 14.6 g/dL (13.5-17.5); Lymphocytes % (auto) 9.1 % (10.0-50.0); Mean Corpuscular Hemoglobin 19.7 pg (28.0-32.0); Mean Corpuscular Hgb Conc. 31.1 g/dL (32.0-36.0); Mean Corpuscular Volume 63.1 fL (80.0-100.0); Monocytes # (auto) 0.9 10 ^3/uL (0-1.3); Monocytes % (auto) 8.8 % (0.0-12.0); Neutrophils % (auto) 75.4 % (37.0-80.0); Nucleated Red Blood Cells % 0.3 %; Platelet Count (auto) 168 10^3/uL (140-450); Red Blood Cells 7.44 10^6/uL (4.5-5.90)
[2023-11-09 05:26] LABS: Alanine Aminotransferase 39 U/L (7-40); Albumin 3.4 g/dL (3.2-4.8); Alkaline Phosphatase 87 U/L (46-116); Anion Gap 3 (5-15); Aspartate Aminotransferase 32 U/L (13-40); BUN/Creatinine Ratio 11.2 (10.0-20.0); Blood Urea Nitrogen 21 mg/dL (9-23); Calcium 9.1 mg/dL (8.7-10.4); Carbon Dioxide 28 mmol/L (20-30); Chloride 106 mmol/L (98-107); Glucose 115 mg/dL (74-106); Potassium 4.8 mmol/L (3.5-5.1); Sodium 137 mmol/L (136-145); Total Protein 6.3 g/dL (5.7-8.2)
[2023-11-09] MEDS: ENOXAPARIN SOD 40 MG/0.4 ML SYRINGE SC SCH (09:29)
[2023-11-10] VITALS (9 sets, daily range): BP systolic 134–160; BP diastolic 96–111; PULSE 65–83; RESP 17–21; TEMP 97.7–98.6; O2SAT 91–98
[2023-11-11] VITALS (7 sets, daily range): BP systolic 138–163; BP diastolic 94–119; PULSE 73–88; RESP 20–22; TEMP 97.4–98.7; O2SAT 92–98
[2023-11-11 06:39] LABS: Chloride 102 mmol/L (98-107); Potassium 4.2 mmol/L (3.5-5.1); Sodium 137 mmol/L (136-145)
[2023-11-11 06:40] LABS: Anion Gap 1 (5-15); Calcium 9.4 mg/dL (8.7-10.4); Carbon Dioxide 34 mmol/L (20-30)
[2023-11-11 06:45] LABS: BUN/Creatinine Ratio 16.7 (10.0-20.0); Blood Urea Nitrogen 28 mg/dL (9-23); Glucose 116 mg/dL (74-106)
[2023-11-26 09:02] LABS: Cocaine Blood SEE SCANNED RESULTS; Methadone SEE SCANNED RESULTS; THC Blood SEE SCANNED RESULTS; Tetrahydrocannabinol SEE SCANNED RESULTS
== END 2023-11-11 17:30 | disposition left against medical advice (07) | DRG 469 ==
LOC: ER 00:44 → TELE 06:28 → TELE-EAST 09:11
PROVIDERS: ADMIT Nurse Practitioner Family; ATTEND Family Medicine
DX: N17.0 Acute kidney failure with tubular necrosis (principal); I21.A1 Myocardial infarction type 2; I50.23 Acute on chronic systolic (congestive) heart failure; I42.7 Cardiomyopathy due to drug and external agent; I13.0 Hypertensive heart and chronic kidney disease with heart failure and stage 1 through stage 4 chronic kidney disease, or unspecified chronic kidney disease; I44.1 Atrioventricular block, second degree; I16.1 Hypertensive emergency; E66.01 Morbid (severe) obesity due to excess calories; E11.22 Type 2 diabetes mellitus with diabetic chronic kidney disease; F17.210 Nicotine dependence, cigarettes, uncomplicated; Z53.29 Procedure and treatment not carried out because of patient's decision for other reasons; N18.9 Chronic kidney disease, unspecified; F15.20 Other stimulant dependence, uncomplicated; E78.00 Pure hypercholesterolemia, unspecified; M10.9 Gout, unspecified; E11.65 Type 2 diabetes mellitus with hyperglycemia; Z86.73 Personal history of transient ischemic attack (TIA), and cerebral infarction without residual deficits; Z91.148 Patient's other noncompliance with medication regimen for other reason; Z82.49 Family history of ischemic heart disease and other diseases of the circulatory system; Z91.199 Patient's noncompliance with other medical treatment and regimen due to unspecified reason; Z68.36 Body mass index [BMI] 36.0-36.9, adult
CPT/HCPCS: 36415; 71045; 71250; 76775; 80048; 80053; 80307; 81001; 82550; 82962; 83036; 83880; 83935; 84156; 84484; 85025; 85379; 85610; 85730; 93005; 94640; 96361; 96365; 96375; G0378; J1815; J2405

== ENCOUNTER → 2024-05-17 | Outpatient (CLI) | payer MEDICAID ==
[~2024-05-17] MED LIST changes: +LISI2.5T47 PO; +SIMV40TA18 PO
== END | disposition home or self-care (01) ==
LOC: Rad HDHVI 14:02
PROVIDERS: ATTEND Internal Medicine Cardiovascular Disease
DX: I50.33 Acute on chronic diastolic (congestive) heart failure (principal)
CPT/HCPCS: 93306

== ENCOUNTER → 2024-07-12 | Outpatient (CLI) | payer MEDICAID ==
[~2024-07-12] MED LIST changes: +AMLO1TAB23 PO; +ASPI81CH74 PO; +CLOP75TA28 PO; +FEBU40TA PO; +FURO20TA3 PO; +SACU1TAB7 PO; +VERI5TAB PO
[2024-07-12 12:00] VITALS: BP 147/92; PULSE 81; RESP 16; O2SAT 97
[2024-07-12 12:15] VITALS: BP 145/96; PULSE 86; RESP 16
--- NOTE | 2024-07-12 13:44 | DVH ---
EXAM: XY CHEST TWO VIEWS ROUTINE CLINICAL HISTORY: Pain COMPARISON: XY CHEST TWO VIEWS ROUTINE on DOS: 10/29/22, CHEST TWO VIEWS ROUTINE on DOS: 04/12/22, CXR2 on DOS: 04/12/22 TECHNIQUE: Frontal and lateral view of the chest was obtained FINDINGS: Lines and Tubes: None Lungs: No focal consolidation. Mild pulmonary vascular congestion. Pleura: No effusion. No pneumothorax. Cardiomediastinal contours:Cardiomegaly. Atherosclerotic vascular calcifications of the thoracic aort a are noted. Bones: No acute osseous abnormality. IMPRESSION: Cardiomegaly with mild pulmonary vascular congestion.
== END | disposition home or self-care (01) ==
LOC: Rad HDHVI 11:52
PROVIDERS: ATTEND Internal Medicine Cardiovascular Disease
DX: Z01.818 Encounter for other preprocedural examination (principal); R09.89 Other specified symptoms and signs involving the circulatory and respiratory systems; I11.9 Hypertensive heart disease without heart failure; I70.0 Atherosclerosis of aorta; I25.10 Atherosclerotic heart disease of native coronary artery without angina pectoris
CPT/HCPCS: 71046; 93005; G0463

== ENCOUNTER 2024-07-15 06:27 | Day surgery (SDC) | payer MEDICAID ==
[2024-07-12 13:57] LABS: Basophils # (auto) 0.1 10 ^3/uL (0-0.2); Basophils % (auto) 0.9 % (0.0-2.0); Eosinophils # (auto) 0.7 10 ^3/uL (0-0.8); Lymphocytes # (auto) 1.3 10 ^3/uL (0.4-5.4); Monocytes # (auto) 0.8 10 ^3/uL (0-1.3); White Blood Cell 8.9 10^3/uL (4.4-10.8)
[2024-07-12 13:59] LABS: Eosinophils % (auto) 8.4 % (0.0-7.0); Hematocrit 48.3 % (41.0-53.0); Hemoglobin 15.1 g/dL (13.5-17.5); Lymphocytes % (auto) 14.5 % (10.0-50.0); Mean Corpuscular Hgb Conc. 31.2 g/dL (32.0-36.0); Monocytes % (auto) 8.5 % (0.0-12.0); Neutrophils # (auto) 6.1 10 ^3/uL (1.6-8.6); Neutrophils % (auto) 67.7 % (37.0-80.0); Nucleated Red Blood Cells % 0.1 %; Platelet Count (auto) 160 10^3/uL (140-450); Red Blood Cells 7.92 10^6/uL (4.5-5.90); Red Cell Distribution Width 16.8 % (11.8-14.3)
[2024-07-12 14:12] LABS: Partial Thromboplastin Time 28.5 SEC (24.5-34.5); Prothrombin Time 10.6 sec (9.3-11.8)
[2024-07-12 14:17] LABS: Potassium 4.6 mmol/L (3.5-5.1); Sodium 144 mmol/L (136-145)
[2024-07-12 14:18] LABS: Anion Gap 7 (5-15); Calcium 10.2 mg/dL (8.7-10.4); Carbon Dioxide 26 mmol/L (20-31); Chloride 111 mmol/L (98-107)
[2024-07-12 14:23] LABS: BUN/Creatinine Ratio 13.8 (10.0-20.0)
[2024-07-12 14:24] LABS: Blood Urea Nitrogen 27 mg/dL (9-23); Glucose 109 mg/dL (74-106)
[~2024-07-15] VITALS: Ht 185.4 cm; Wt 119.7 kg
[~2024-07-15 06:27] MED LIST changes: -ALL100T PO; -AML5T PO; -ASPI1TAB20 PO; -ASPI81CH74 PO; -ATOR40TA52 PO; -CHOL20007 PO; -CLOP75TA28 PO; -EMPA1TAB PO; -LISI2.5T47 PO; -METF-489 PO; -SIMV40TA18 PO
[2024-07-15] MEDS: IOHEXOL 350 MG/ML 100ML IJ ONE (08:44)
[2024-07-15] MEDS: fentaNYL CITRATE 100 MCG/2 ML VL ONE (08:50)
[2024-07-15] MEDS: ANGIOMAX 250 MG VIAL IV ONE (08:50)
[2024-07-15] MEDS: SODIUM CHL 0.9% 50 ML ONE (08:51)
[2024-07-15] MEDS: MIDAZOLAM HCL 2MG/2ML 2ml VIAL (1mg/ml) ONE (08:51)
[2024-07-15] MEDS: LIDOCAINE 2%HCL (LOCAL ANESTH.) INJ 20ML MDV ONE (08:51)
[2024-07-15] MEDS: IODIXANOL 320MG/ML 100ML BTL IV ONE ×2 (09:03→10:02)
[2024-07-15] MEDS: ATROPINE SULF 1 MG/10ml SYR ONE (10:02)
[2024-07-15] MEDS: CLOPIDOGREL BISULFATE 75 MG TAB ONE (10:02)
--- NOTE | 2024-07-15 10:42 | DVHOP ---
DATE OF SURGERY: 07/15/2024 PROCEDURES PERFORMED: * Selective left and right coronary angiography. * FFR. * Thrombectomy with Shockwave of the proximal right coronary artery with a 3.5 x 12 mm Shockwave catheter. * Angioplasty with stent placement in the right coronary artery. * Ventriculogram. * Conscious sedation. DESCRIPTION OF PROCEDURE: The patient was prepped and draped in a sterile condition. 1% Xylocaine used to anesthetize the right groin. Using a Cook needle, right femoral artery was engaged with Seldinger technique. A 6-Niuean sheath in the right femoral artery. Using a 6-Niuean JL4 catheter, 6-Niuean JR4 catheter selective left and right coronary angiography was performed. Using 6-Niuean pigtail catheter, ventriculogram was done. The patient's aorta is enlarged and is very tortuous and we had to use a stiff angled Terumo wire to get the pigtail across the lesion, although there was no gradient across the aortic valve. Then, once a diagnostic catheter was done, we switched over to interventional system. Using 6-Niuean AL1 guide catheter we were able to cannulate the right coronary artery, which had a very inferior takeoff, and therefore, attempt to use the right coronary artery failed. Attempt to use modified right, we were not able to cannulate appropriately to give adequate support and using a COONEY guide catheter also did not provide any adequate guide support. Finally, a 6-Niuean AL1 was able to give adequate guide support. We used a Choice PT XL support wire to cross the lesion. Similarly, a Runthrough wire was also used. We eventually ended up using the Runthrough wire for the angioplasty. A 3.5 x 12 mm Shockwave balloon was used for angioplasty and thrombectomy was performed. Following that, a 4.0 x 15 mm [place] Washburn stent was deployed across the lesion at 19 atmospheres. There were no complications. The patient tolerated the procedure well. FFR of the right coronary artery showed an FFR of 0.77. RESULTS: * Left heart catheterization showed a left main patent. * The left anterior descending artery was patent. * Circumflex was patent. * Right coronary artery, however, has greater than 80%-90% stenosis proximally. It is very tortuous anatomy. Status post FFR/thrombectomy with Shockwave balloon and catheter. * Stent placement with a 4.0 x 15 mm Yunier Washburn stent, now less than 10% residual stenosis. * Left ventricular function was preserved with an estimated EF of around 60% with an LVEDP of 15 mmHg, with no gradient across the aortic valve. CONCLUSION: The patient had successful angioplasty with stent placement in the right coronary artery. Sae Bullock MD SA/EVER TID: [id number] RECEIPT: [id number]
--- NOTE | 2024-07-15 11:05 | DVHDS ---
DATE OF DISCHARGE: 07/15/2024 DISCHARGE DIAGNOSES: The patient is status post angioplasty with stent placed in the right coronary artery. HOSPITAL COURSE: The patient is clinically doing well. He had chest pain, abnormal stress test. Now, the right coronary artery has been revascularized. He was stable at the time of discharge. The patient will be discharged home on dual antiplatelet therapy. DISPOSITION: Home. ACTIVITY: As instructed. DIET: 2 g sodium diet. FOLLOW-UP: Follow up with me in 1 week. Stable at the time of discharge. Sae Bullock MD SA/IGNACIO TID: [id number] RECEIPT: [id number]
[2024-07-15] MEDS ORDERED: ASPI81CH74 PO (11:24)
[2024-07-15] MEDS ORDERED: CLOP75TA28 PO (11:24)
--- NOTE | 2024-07-15 11:42 | DVHHP ---
ADMIT DATE: 07/15/2024 HISTORY OF PRESENT ILLNESS: The patient who is 63 years old with history of hypertension, hyperlipidemia, morbid obesity, diabetes, now sign and symptom complex with inferior wall reversibility with diminished left ventricular ejection fraction by echocardiogram with mild segmental wall motion abnormality. The patient because of the above symptoms and shortness of breath and chest pain, is now scheduled to undergo coronary angiography. The patient's risks and benefits were explained to the patient. The patient understands and agrees. He denies any syncopal episodes. No melena or hematochezia. No hematemesis or hemoptysis. No history of hematuria. Denies any recent trauma. No history of seizure disorder. No history of CVA. Denies any history of recent travel. No infectious etiology. No mixed connective tissue disease. No history of irritable bowel syndrome or inflammatory bowel disease. No history of any lung issues at this time currently. No history of any CVA. No neurological deficits. He denies any recent travel abroad. PHYSICAL EXAMINATION: VITAL SIGNS: Blood pressure is 148/70, pulse 77 and regular, O2 saturation 98% on room air. HEENT: Pupils are reactive. Funduscopic exam shows no AV nicking. No exudates. No papilledema. Sclerae anicteric. NECK: No JVD appreciated. Carotid pulses are 2+ and symmetrical. Normal upstroke and contour. No cervical adenopathy. No supraclavicular adenopathy. PULMONARY: Scattered rhonchi at the bases. CARDIOVASCULAR: Regular rate. PMI is not displaced. ABDOMEN: Soft, nontender. Normal bowel sounds. EXTREMITIES: 1+ edema. 1+ pulses bilaterally. ASSESSMENT AND PLAN: Thus, the patient with a history of chest pain, shortness of breath, now with abnormal stress test. The patient is now to undergo coronary angiography to define coronary anatomy. Further recommendations after the angiogram. Risks and benefits were explained to the patient. The patient understands and agrees. Sae Bullock MD SA/EVER TID: [id number] RECEIPT: [id number]
== END 2024-07-15 12:43 | disposition home or self-care (01) ==
LOC: CATH 06:27
PROVIDERS: ATTEND Internal Medicine Cardiovascular Disease
DX: R94.39 Abnormal result of other cardiovascular function study (principal); I25.10 Atherosclerotic heart disease of native coronary artery without angina pectoris; I10 Essential (primary) hypertension; I11.0 Hypertensive heart disease with heart failure; I50.20 Unspecified systolic (congestive) heart failure; E11.9 Type 2 diabetes mellitus without complications; E78.5 Hyperlipidemia, unspecified; F17.210 Nicotine dependence, cigarettes, uncomplicated; E66.01 Morbid (severe) obesity due to excess calories; Z68.34 Body mass index [BMI] 34.0-34.9, adult; Z79.82 Long term (current) use of aspirin; Z79.899 Other long term (current) drug therapy
CPT/HCPCS: 0523T; 36415; 80048; 85025; 85610; 85730; 92972; 92973; 93458; C1760; C1761; C1769; C1874; C1887; C1894; C9600; J1644; J2250; J3010; Q9967; 99152; 99153

== ENCOUNTER → 2024-09-15 | Outpatient (CLI) | payer MEDICAID ==
[~2024-09-15] MED LIST changes: +ASPI81CH74 PO; +CLOP75TA28 PO
--- NOTE | 2024-09-16 12:16 | DVHSR ---
APPROVED REPORT EXAM: Two-dimensional and M-mode echocardiogram with Doppler and color Doppler. RISK FACTORS Obesity: DIMENSIONS LVDd4.4 (3.8-5.7cm)LA (2D)3.8 (1.9-4.0cm)Aortic Root4.4 (2.0-3.7cm) LVDs3.0 (2.5-4.0cm)LA (MM) (1.9-4.0cm)Aortic Cusp Exc1.9 (1.5-2.0cm) EF (%) 55.0 (55-70%)Rt. Atrium4.3 (1.9-4.0cm)Asc. Aorta cm IVSd1.1 (0.7-1.1cm)RV (D) (1.8-2.4cm) PWd1.0 (0.7-1.1cm) Mitral Valve MitralMitral Stenosis E wave0.51m/sMV Mean GR.mmHg A wave0.96m/sMV Peak GR.mmHg E/A ratio0.52D MVAcm2 DECEL [id number] 1/2 Tim[place] Aortic Valve Aortic ValveAortic Stenosis V10.87m/Adriano Mean GR.3mmHg V21.23m/Adriano Peak GR.6mmHg LVOT Diameter2.4 (1.8-2.4cm)Doppler AVA3.20cm2 Pulmonic Valve V20.65m/s LEFT VENTRICLE The left ventricle is normal size. The left ventricle is normal in structure and function. The Ejection Fraction is within normal limits. RIGHT VENTRICLE The right ventricle is normal size. ATRIA The left atrial size is normal. The right atrium is enlarged. The interatrial septum is intact with no evidence for an atrial septal defect. MITRAL VALVE The mitral valve is normal in structure. Mitral regurgitation is trace. PULMONIC VALVE The pulmonic valve is not well visualized. TRICUSPID VALVE The tricuspid valve is grossly normal. AORTIC VALVE The aortic valve opens well. No aortic regurgitation is present. GREAT VESSELS The aortic root is normal size. PERICARDIAL EFFUSION There is no pericardial effusion. Other Information Technically limited study due to body habitus. Conclusion EF 55% DILATED AORTIC ROOT JUNITO
== END | disposition home or self-care (01) ==
LOC: Rad HDHVI 12:58
PROVIDERS: ATTEND Internal Medicine Cardiovascular Disease
DX: I11.9 Hypertensive heart disease without heart failure (principal)
CPT/HCPCS: 93306